=== PATIENT | female | born 1935 | race Caucasian/White ===

== ENCOUNTER → 2020-09-21 | Outpatient (CLI) | payer MEDICARE, BC ==
[~2020-09-21] MED LIST: ACCUPRIL20 MG PO; ACCUPRIL5 MG PO; ASPIRIN CHEWABL81 MG PO; CALCIUM PO; CORDARONE 200M200 MG PO; ELIQUIS2.5 MG PO; IMDUR ER TAB 3030 MG PO; K-DUR TAB 10 M10 MEQ PO; KENALOG 0.5% CR15 GM TOP; LEVOTHYROXINE50 MC1 PO; LIPITOR TAB 1010 MG PO; LIPITOR20 MG PO; LOVENOX60 MG/0.6 INJ; METOPROLOL TART25 MG PO; NEURONTIN 300300 MG PO; NORVASC 5 MG TAB5 MG PO; NORVASC10 MG PO; NORVASC2.5 MG PO; PLETAL 100 MG100 MG PO; QUINAPRIL HCL20 MG PO; SYNTHROID125 MCG PO; VITAMIN B-121000 MCG PO; VITAMIN D PO; VITAMIN D21250 MCG PO; VITAMIN D250000 UNIT PO; VITAMIN D35000 UNI1 PO
== END ==
LOC: US 10:52
DX: I65.23 Occlusion and stenosis of bilateral carotid arteries (principal)
CPT/HCPCS: 93880

== ENCOUNTER → 2020-10-02 | Outpatient (CLI) | payer MEDICARE, BC ==
[2020-10-02 13:14] LABS: HEMOGLOBIN 13.1 gm/dl (12.3-15.3); RED BLOOD COUNT 3.94 M/UL (4.00-5.10); WHITE BLOOD COUNT 4.9 K/UL (4.5-11.0)
== END ==
LOC: OPSV2 12:00
PROVIDERS: Surgery
DX: Z01.818 Encounter for other preprocedural examination (principal); R94.31 Abnormal electrocardiogram [ECG] [EKG]
CPT/HCPCS: 36415; 71046; 80053; 85025; 85610; 85730; 86850; 86900; 86901; 93005

== ENCOUNTER 2020-10-03 08:20 | Day surgery (SDC) | payer MEDICARE, BC ==
[~2020-10-03] VITALS: Ht 142.2 cm; Wt 62.3 kg
[~2020-10-03 08:20] MED LIST changes: -ASPIRIN CHEWABL81 MG PO
[2020-10-03 17:09] LABS: HEMOGLOBIN 11.6 gm/dl (12.3-15.3); RED BLOOD COUNT 3.52 M/UL (4.00-5.10); WHITE BLOOD COUNT 4.5 K/UL (4.5-11.0)
[2020-10-03 17:34] LABS: BUN/CREATININE RATIO 18 (0-10)
[2020-10-04 05:22] LABS: HEMOGLOBIN 11.2 gm/dl (12.3-15.3); RED BLOOD COUNT 3.4 M/UL (4.00-5.10); WHITE BLOOD COUNT 4.6 K/UL (4.5-11.0)
[2020-10-04 05:57] LABS: BUN/CREATININE RATIO 15 (0-10)
[2020-10-04] MEDS ORDERED: ASPIRIN CHEWABL81 MG PO (12:01)
== END 2020-10-05 13:25 | disposition home or self-care (01) ==
LOC: ZOBSOF 08:20 → OR 08:20 → ZOBSOF 08:20 → CCU 08:20 → OBS 08:20 → EDSTATUS 11:00 → CCU 16:48 → ZOBSOF 16:48 → CCU 10-04 13:25 → OR 10-05 13:25
PROVIDERS: Surgery
PROC: 047U3Z1 Dilation of Left Peroneal Artery using Drug-Coated Balloon, Percutaneous Approach (ICD-10-PCS; 2020-10-03)
PROC: B41GZZZ Fluoroscopy of Left Lower Extremity Arteries (ICD-10-PCS; 2020-10-03)
PROC: 047N3Z1 Dilation of Left Popliteal Artery using Drug-Coated Balloon, Percutaneous Approach (ICD-10-PCS; principal; 2020-10-03 11:00)
DX: I70.212 Atherosclerosis of native arteries of extremities with intermittent claudication, left leg (principal); I48.91 Unspecified atrial fibrillation; I10 Essential (primary) hypertension; I25.10 Atherosclerotic heart disease of native coronary artery without angina pectoris; E66.9 Obesity, unspecified; Z79.01 Long term (current) use of anticoagulants; Z79.899 Other long term (current) drug therapy
CPT/HCPCS: 36415; 75625; 75630; 80048; 81001; 85027; 94760; C1725; C1769; C1887; C2623; G0378; G0379; J0690; J1335; J1580; J1644; J2001; J2370; J2405; J2704; J2710; J7030; J7040; J7050; J7120; Q9962